=== PATIENT | female | born 1980 | race Caucasian/White ===

== ENCOUNTER 2017-02-15 11:18 | Emergency (ER) | payer OTHER ==
[~2017-02-15] VITALS: Ht 165.1 cm; Wt 95.8 kg
[2017-02-15] MEDS ORDERED: FLEXERIL10 MG PO (15:15)
[2017-02-15] MEDS ORDERED: NAPROSYN500 MG PO (15:15)
[2017-02-15 15:34] VITALS: BP 115/69
== END 2017-02-15 15:39 | disposition home or self-care (01) ==
LOC: EME 11:18
PROC: 3E0234Z Introduction of Serum, Toxoid and Vaccine into Muscle, Percutaneous Approach (ICD-10-PCS; principal; 2017-02-15)
DX: S16.1XXA Strain of muscle, fascia and tendon at neck level, initial encounter (principal); S39.012A Strain of muscle, fascia and tendon of lower back, initial encounter; S40.029A Contusion of unspecified upper arm, initial encounter; F32.9 Major depressive disorder, single episode, unspecified; F17.210 Nicotine dependence, cigarettes, uncomplicated; Z23 Encounter for immunization; Y92.410 Unspecified street and highway as the place of occurrence of the external cause; V49.40XA Driver injured in collision with unspecified motor vehicles in traffic accident, initial encounter
CPT/HCPCS: 71020; 73110; 73130